=== PATIENT | female | born 1960 | race Caucasian/White ===

== ENCOUNTER 2022-07-01 23:11 | Emergency (ER) | payer SELFPAY ==
[2022-07-01 23:11] VITALS: BP 116/98; PULSE 80; RESP 18; TEMP 37; O2SAT 96; BMI 28.4
--- NOTE | 2022-07-01 23:39 | EKG12_ITS ---
Test Reason : SYNCOPE Blood Pressure : / mmHG Vent. Rate : 078 BPM Atrial Rate : 078 BPM P-R Int : 170 ms QRS Dur : 072 ms QT Int : 410 ms P-R-T Axes : 073 047 053 degrees QTc Int : 467 ms Normal sinus rhythm Low voltage QRS (Limb Leads) Confirmed by VIVIENNE COPE, SHANKAR ([id number]), web content editor TABATHA DRAKE ([id number]) on 07/03/2022 9:24:36 AM Referred By: TL Confirmed By:SHANKAR PALAFOX MD
--- NOTE | 2022-07-01 23:50 | RAD_ITS ---
EXAM: XR CHEST, 2 VIEWS CLINICAL INDICATION: chest injury TECHNIQUE: Frontal and lateral views of the chest. This report was created using [employer] report generation technology. COMPARISON: None. FINDINGS: LUNGS AND PLEURAL SPACES: Unremarkable. No consolidation or edema. No pneumothorax. No effusion. HEART: Unremarkable. Cardiac silhouette not enlarged. MEDIASTINUM: Central airways and mediastinal contour are unremarkable. BONES/JOINTS: Unremarkable. SOFT TISSUES: Unremarkable. RAD/Chest PA and Lateral IMPRESSION: No radiographic evidence of acute cardiopulmonary disease. Electronically Signed: Jose Herring MD at 0:18 EDT ,
--- NOTE | 2022-07-01 23:50 | EX.ED.DYSGE1 ---
HPI History of Present Illness Chief Complaint: Syncope Informant: patient Narrative Narrative: Patient presents here with sister after a fall. She states she is in bed had pain and numbness distal from lower leg. She tried her leg through the hallway into the kitchen she states she then fell down and felt like her whole body passed out. She states was awake throughout. No head injuries. No headache or neck pain. States that chest pain left side after falling. Currently denies any chest or leg pain. She is on the phone with her sister around 1015, she states there is a lot going on her mind she was trying to talk. Her sister states she was stuttering. She states there was no troubles trying to get her words out except that she had a lot going on in her mind. She did not express any expressive aphasia. Denies any similar symptoms in the past. She takes [id number] multivitamins and supplements. Denies hypertension diabetes or hyperlipidemia. Prior similar symptoms: No PFSH PFSH Medical History Anxiety Depression GERD (gastroesophageal reflux disease) Hypothyroidism Home Medications albuterol sulfate 90 mcg/actuation aerosol inhaler (Ventolin HFA) 1 - 2 puff inhalation Q4H PRN PRN Wheezing ##1 02/14/17 [Rx Last Taken Unknown] potassium 07/01/22 [History Last Taken Unknown] vitamin A 2,400 mcg capsule 2,400 mcg PO DAILY 07/01/22 [History Last Taken Unknown] zinc 10 mg tablet 10 mg PO DAILY 07/01/22 [History Last Taken Unknown] Allergy/AdvReac Type Severity Reaction Status Date / Time cimetidine [From Tagamet] Allergy Rash Verified 02/14/17 18:44 cimetidine HCl [From Tagamet] Allergy Rash Verified 02/14/17 18:44 Sulfa (Sulfonamide Allergy Rash Verified 02/14/17 18:44 Antibiotics) Surgical History H/O partial thyroidectomy Social History Smoking Status: Never smoker ROS ROS ED Constitutional Constitutional ED: Denies chills, fever(s) or sweats Eyes Eyes: Denies change in vision ENT ENT ED: Denies dysphagia or sore throat Cardiovascular Cardiovascular: Reports chest pain; Denies leg edema, palpitations or racing heartbeat Respiratory/Chest Respiratory/Chest: Denies cough, dyspnea or dyspnea on exertion Gastrointestinal Gastrointestinal: Denies abdominal pain, diarrhea, nausea or vomiting Genitourinary Genitourinary ED: Denies dysuria, hematuria or urinary frequency Musculoskeletal Musculoskeletal: Reports extremity pain; Denies back pain or neck pain Integumentary Denies rash or wounds Neurologic Neurologic: Denies headache(s), paresthesias or weakness EXAM Physical Exam Const Vital Signs: 07/01/22 23:11 07/01/22 23:23 07/02/22 01:14 Temperature 98.6 F Temperature Source Temporal Pulse Rate 80 98 Respiratory Rate 18 13 Respiratory Effort Normal Non-Labored Respiratory Pattern Normal Blood Pressure 116/98 H 127/99 H Blood Pressure Mean 104 Pulse Ox 96 97 Oxygen Delivery Method Room Air Positive well nourished and well developed General Appearance ED: well developed and NAD HEENT Reports moist mucous membranes normocephalic and atraumatic Eyes PERRL, EOMs intact bilaterally and conjunctivae normal General Eye ED: Yes normal appearance of both eyes Neck no lymphadenopathy and supple General: Negative for tenderness Chest Wall Chest Narrative: Left chest wall tenderness reproduced with palpation there is no ecchymosis or crepitus. Chest: Negative for tenderness Resp normal respiratory effort and normal air movement Resp Narrative: Symmetric breath sounds. Effort and Inspection: symmetric chest movement; Negative for respiratory distress Cardio regular rate, regular rhythm and no murmurs Peripheral Pulses: pulses 2+ throughout GI normal to inspection, nondistended, normoactive bowel sounds and non-tender Palpation: Negative for guarding or rebound tenderness present Back/Spine no CVA tenderness and no thoracic nor lumbar tenderness Extremity normal to inspection Extremity Narrative: No leg pain, no swelling. Pulses are intact distally. General Extremety ED: Negative for edema or tenderness General Extremity: Negative for edema Neuro oriented x3, CN's II-XII intact bilaterally and no sensory deficits noted Neuro Narrative: NIH equals 0 Sensorium / Orientation: awake and alert Skin no rashes or lesions noted and no wounds NIHSS NIHSS Initial: 1a Level of Consciousness: 0 1b LOC Questions (Score 2 if aphasic/stupor): 0 1c LOC Commands (Only score 1st attempt): 0 2 Best Gaze (If aphasic, use reflexive mvmts.): 0 3 Visual: 0 4 Facial Palsy: 0 5 Motor Arm Right (UN = amputation/fusion): 0 5 Motor Arm Left: 0 6 Motor Leg Right: 0 6 Motor Leg Left: 0 7 Limb ataxia (Only + if out of proportion): 0 8 Sensory (Aphasia/stupor=0 or 1, coma=2): 0 9 Best Language: 0 10 Dysarthria (mute, coma=2, intubated=UN): 0 11 Extinction and Inattention (only scored if +): 0 Total Score: 0 MDM MDM MDM Narrative Medical decision making narrative: PatientPatient vague symptoms. Anterior distal leg pain with paresthesias. She had no deficits on exam NIH of 0. There is no expressive aphasia or history for concerns for stroke. Chest pain after a fall. Two-view chest x-ray reviewed by myself read by radiology shows no acute process labs with troponin negative. Discussed chest wall injury discussed obtaining 2-hour troponin if she is concerned for cardiac, she declines. Chest wall contusion discussed. She was able to ambulate in the ED with no return of symptoms. She will follow-up as an outpatient. Return precautions. All questions were answered. Lab Data Attestation: I reviewed the patient's lab results. Labs: Laboratory Results - last 24 hr 07/01/22 07/01/22 23:15 23:15 WBC 12.7 H RBC 4.99 Hgb 15.9 H Hct 45.6 MCV 91.4 MCH 31.9 MCHC 34.9 RDW Std Deviation 46.1 H RDW Coeff of Jaja 13.7 Plt Count 247 MPV 9.4 Immature Gran % (Auto) 0.400 Neut % (Auto) 49.7 Lymph % (Auto) 38.9 [place] % (Auto) 7.7 Eos % (Auto) 2.6 Baso % (Auto) 0.7 Absolute Neuts (auto) 6.3 Absolute Lymphs (auto) 4.94 H Nucleated RBC % 0 Sodium 140 Potassium 3.8 Chloride 105 Carbon Dioxide 28.0 Anion Gap 7 BUN 12 Creatinine 0.99 Estim Creat Clear Calc 57.91 Est GFR (MDRD) Af Amer 72 Est GFR (MDRD) Non-Af 60 BUN/Creatinine Ratio 12.1 Glucose 138 H Calcium 9.5 Troponin I High Sens 5 Radiography Diagnostic Testing: Clinical Impression(s) from Imaging Studies Chest X-Ray 07/01/22 23:50 IMPRESSION: No radiographic evidence of acute cardiopulmonary disease. Electronically Signed: Jose Herring MD at 0:18 EDT , EKG Initial EKG: Attestation: I personally reviewed and interpreted this EKG as follows: Comments: Sinus rate of 78, no ST or T wave changes. QTc 467. Discharge Plan Triage Chief Complaint: Syncope ED Provider: Alin Presley Dx/Rx/DC Orders Clinical Impression: Fall, Chest wall injury, Paresthesia Instructions: ED Chest Wall Contusion, ED Paraesthesias Prescriptions: No Action albuterol sulfate [Ventolin HFA] 1 INHALER inhaler 1 - 2 puff inhalation Q4H PRN PRN (Reason: Wheezing) Qty: 1 0RF vitamin A 2,400 mcg Capsule 2,400 mcg PO DAILY zinc 10 mg Tablet 10 mg PO DAILY potassium Primary Care Provider: Chance Saleem Referrals: Chance Saleem MD [Primary Care Provider] - 3-5 Days Activity Restrictions/Additional Instructions: EKG cardiac work-up, chest x-ray negative. Follow-up with your doctor for reevaluation. Return if any worsening symptoms. Disposition Disposition: Home, Self Care Discharge Date/Time: 07/02/22 01:15
[2022-07-01 23:57] LABS: Absolute Lymphocyte Count 4.94 X10^3/uL (0.83-4.51); Absolute Neutrophil Count 6.3 X10^3/uL (2.0-7.7); Basophil# 0.09 X10^3/uL; Basophil% 0.7 % (0-1); Eosinophil# 0.33 X10^3/uL; Eosinophils% 2.6 % (0-5); Hematocrit 45.6 % (37-47); Hemoglobin 15.9 g/dL (12.0-15.0); Lymphocyte # 4.94 X10^3/ul (0.83-4.51); Lymphocyte % 38.9 % (19-41); Mean Corp Hgb Conc 34.9 g/dL (32-36); Mean Corpuscular Hgb 31.9 pg (27.0-32.0); Mean Corpuscular Volume 91.4 fL (81-99); Mean Platelet Vol. 9.4 fl (6.2-12.0); Monocyte# 0.98 X10^3/uL; Monocyte% 7.7 % (0-10); NRBC Flagged by Analyzer 0 % (0-5); Neutrophil # 6.31 X10^3/uL (2.7-7.7); Neutrophil % 49.7 % (47-70); Platelet Count 247 K/mm3 (150-450); RBC Distribution Width CV 13.7 % (11.6-14.6); RBC Distribution Width SD 46.1 fl (35.1-43.9); Red Blood Count 4.99 M/mm3 (4.2-5.4); White Blood Count 12.7 K/mm3 (4.4-11.0)
[2022-07-02 00:13] LABS: Anion Gap 7 (5-15); BUN 12 mg/dL (7-18); BUN/Creat Ratio 12.1 RATIO (10-20); Calcium,Total 9.5 mg/dL (8.5-10.1); Chloride 105 mmol/L (98-107); Creatinine, Serum 0.99 mg/dL (0.55-1.02); EST Glomerular Filtration Rate 60 mL/min (>60); Est Glom Filt Rate - Afr Amer 72 mL/min (>60); Estimated Creatinine Clearance 57.91 ml/min; Glucose 138 mg/dL (74-106); Potassium 3.8 mmol/L (3.5-5.1); Sodium Level 140 mmol/L (136-145); Troponin-I HS (w/2H Reflex) 5 pg/mL (3.0-54.0)
[2022-07-02 01:14] VITALS: BP 127/99; PULSE 98; RESP 13; O2SAT 97
[2022-07-02 01:45] LABS: Reflex Troponin-HS? (from REC) Y
== END 2022-07-02 01:15 | disposition home or self-care (01) ==
PROVIDERS: Emergency Provider Emergency Medicine; PCP Family Medicine; Visit Provider Emergency Medicine
DX: S20.212A Contusion of left front wall of thorax, initial encounter (principal); W18.39XA Other fall on same level, initial encounter; R20.2 Paresthesia of skin
CPT/HCPCS: 71046; 80048; 84484; 85025; 93005; 99284; A4216

== ENCOUNTER 2024-01-11 09:28 | Day surgery (SDC) | payer MEDICARE, SELFPAY ==
--- NOTE | 2024-01-11 08:19 | HP.PCM_ITS ---
History and Physical Date of Admission: 01/11/24 HISTORY OF PRESENT ILLNESS 63 year old woman presents for evaluation for TBSE. She has concerns regarding lesions on her right lower medial back, left medial chest wall near clavicle, left lateral inferior neck, right posterior shoulder, and left anterior shoulder that have enlarged in size over the last few years and have become more raised in configuration. She denies fever. She denies trauma, She denies infection, She denies drainage. The right lower medial back lesion also has irregular borders. She also some tannish spots on her left lateral cheek by lateral canthal area and right lateral cheek by lateral canthal area. She has no previous history of skin cancer. She states there is no family history of skin cancer. She presents today for further evaluation and treatment. PAST MEDICAL HISTORY Anxiety Benign lesion of orbit Benign skin lesion Bladder infection Bone fracture Depression GERD (gastroesophageal reflux disease) High cholesterol Hypothyroidism Migraines Neoplasm of skin of left cheek Neoplasm of skin of lower back Neoplasm of skin of right cheek Vitamin deficiency PAST SURGICAL HISTORY H/O partial thyroidectomy ALLERGIES cimetidine [From Tagamet] cimetidine HCl [From Tagamet] Sulfa (Sulfonamide Antibiotics) MEDICATIONS albuterol sulfate/actuation aerosol inhaler (Ventolin HFA) potassium vitamin A zinc FAMILY HISTORY Other Heart disease High cholesterol Hypertension SOCIAL HISTORY Smoking Status: Never smoker REVIEW OF SYSTEMS General - Denies fever, fatigue, and weight loss. Eyes - Denies cataracts and glaucoma. ENT - Denies nasal congestion and sore throat. Endocrine - Denies excessive thirst and urination. Skin - Denies skin cancer. Has enlarging lesions on her right lower medial back, left medial chest wall near clavicle, left lateral inferior neck, right posterior shoulder, and left anterior shoulder. Has tannish lesions left and right lateral cheeks by lateral canthal areas. Musculoskeletal - Denies joint pain, joint stiffness, weakness of muscles and joints, back pain, and arthritis. Neuro - Has headaches. Cardiovascular - Denies chest pain, fatigue, and shortness of breath with exertion. Psych - Has anxiety and depression. Respiratory - Denies chronic cough and shortness of breath. Gastrointestinal - Denies nausea, vomiting, diarrhea, and constipation. Hematologic - Denies abnormal bruising and bleeding. Genitourinary - Denies hematuria and urinary frequency. PHYSICAL EXAMINATION General - Alert and Oriented. HEENT - PERRL. EOMI. Throat is clear. On the left lateral cheek by lateral canthal area is a tannish lesion that measures 1.5 cm. It is flat and uniform in coloration. Has slightly irregular borders. No ulceration. Lesion is nontender. Lesion looks actinic in nature. On the right lateral cheek by lateral canthal area is a tannish lesion that measures 1.3 cm. It is flat and uniform in coloration. Has slightly irregular borders. No ulceration. Lesion is nontender. Lesion looks actinic in nature. No other suspicious lesions noted. Neck - Supple and nontender. No cervical adenopathy. On the left lateral inferior neck is a lesion that measures 0.4 cm. Some firmness noted. Tannish to light brown in coloration. Slightly raised in configuration. Has regular borders. No ulceration. Lesion is nontender. Clinically looks benign at this time. No other suspicious lesions noted. Chest wall - On the left medial chest wall near the clavicle is a lesion that measures 0.5 cm. Some firmness noted. Tannish to light brown in coloration. Slightly raised in configuration. Has regular borders. No ulceration. Lesion is nontender. Clinically looks benign at this time. No other suspicious lesions noted. Lungs - Clear to auscultation. Heart - Regular rate and rhythm. Abdomen - Soft and nondistended. Extremities - FROM. No axillary adenopathy. Radial pulses are palpable. On the left anterior shoulder is a lesion that measures 0.9 cm. Lesion is soft. Tannish to light brown in coloration. Slightly raised in configuration. Has regular borders. No ulceration. Lesion is nontender. Clinically looks benign at this time. On the right posterior shoulder is a lesion that measures 0.6 cm. Lesion is soft. Tannish to light brown in coloration. Slightly raised in configuration. Has regular borders. No ulceration. Lesion is nontender. Clinically looks benign at this time. No other suspicious lesions noted. Back - On the right lower medial back is a lesion that measures 1 cm. Mild firmness noted. Tannish to light brown in coloration. Raised in configuration. Has irregular borders. No ulceration. Lesion is tender from rubbing on her clothes. No other suspicious lesions noted. Neuro - CN II-XII grossly intact. Psych - Normal mood and affect. ASSESSMENT 1. ! cm lesion right lower medial back. 2. 1.5 cm actinic lesion left lateral cheek by lateral canthal area. 3. 1.3 cm actinic lesion right lateral cheek by lateral canthal area. 4. 0.9 cm lesion left anterior shoulder. 5. 0.6 cm lesion right posterior shoulder. 6. 0.5 cm lesion left medial chest wall near the clavicle. 7. 0.4 cm lesion left lateral inferior neck. PLAN For the lesion right lower medial back, recommend excision and send it to Pathology for analysis to rule out carcinoma. If carcinoma is present then further excision will be done with skin flap or skin graft reconstruction. The actinic lesions on her right and left lateral cheek by lateral canthal area can be treated with Aldara. This cream is applied daily at night 5 days per week. Weekends off. Do this for 6 weeks. The return for re-evaluation in 2 months. The Aldara cream can cause redness and burning and scabbing. It is temporary. At that two month visit, if there is improvement but still some residual actinic lesion, a second cycle of Aldara can be done. If persistent or if there is recurrence, would consider surgical excision at that time and send it to Pathology for analysis to rule out carcinoma. The other lesions (left anterior shoulder, right posterior shoulder, left medial chest wall near the clavicle, and left lateral inferior neck) look clinically benign at this time. Patient is aware that if changes occur, then would re- evaluate for excision at that time. If excised, will send the tissue to Pathology for analysis to rule out carcinoma. The surgery for excision of lesion right lower medial back, it can be done as an outpatient under local anesthesia with sedation or general anesthesia. Patient will be in the prone position. Patient was informed of the risks and complications of the procedure including alternatives to surgery. These were discussed with the patient personally. Patient voices understanding and wishes to proceed. Some of the risks and complications were included in a form from the [employer]. Potential risks and complications included but not inclusive of bleeding, infection, seroma, hematoma, bruising, swelling, loss of sensation to skin, pa rtial or complete loss of skin flap and/or skin graft, wound breakdown, need for wound care, poor scarring, poor aesthetic outcome, intra operative cardiac or neurologic events, DVT, PE, and reaction to anesthesia. Will send Aldara to her Pharmacy. From the day she starts it, she would return in 2 months for a re-evaluation. Assessment & Plan Assessment/Plan (1) Neoplasm of skin of lower back: (2) Neoplasm of skin of left cheek: (3) Neoplasm of skin of right cheek: (4) Benign skin lesion:
[2024-01-11 10:03] VITALS: BP 129/88; PULSE 73; RESP 16; TEMP 36.9; O2SAT 100; BMI 27.5
[2024-01-11] MEDS: Lactated Ringers 1,000 ML 15 ML IV (10:12)
[2024-01-11] MEDS: Cefazolin 2 GM in 0.9% Normal Saline (100mL Bag) 100 ML IV (10:33)
--- NOTE | 2024-01-11 10:55 | LES_PTH ---
PATIENT: RODO GORDON LOC: [facility] [place] U#:[id number] AGE/SX: 63/F ROOM: RE01/11/[address]: Dr. Melvin Nolasco MD : 1960 BED: DIS: 01/11/2024 SPEC #: [id number] RECD: 01/11/24 13:31 STATUS: BRITTANEY BHAVIN #: [id number] LUNA: 01/11/24 10:[address]: Melvin Nolasco DEPT: SURGICAL PATHOLOGY RECD BY: Abi Jovel ENTERED: 01/14/24 07:16 SP TYPE: Lesion OTHR DR: Dr. Indra Esposito, DO Tissues: Skin of back, NOS Procedures: Surgery Specimen Level IV HEADER OPERATION: Excision lesion right lower medial back PRE-OP DIAGNOSIS: Neoplasm of skin lower back, benign skin lesion TISSUE SUBMITTED: 1cm lesion right lower medial back MICROSCOPIC DIAGNOSIS Skin lesion right lower medial back, excision: Polypoid intradermal nevus. / 01/15/24 MICROSCOPIC DESCRIPTION Slides are reviewed. GROSS DESCRIPTION Received in fixative is one container labeled with the patient's name and designated Lesion of right lower mid back. The specimen consists of an ellipse of light craig excised skin measuring 1.5 x 0.5 x 0.5cm and excised depth of 0.6cm, the cutaneous surface. This contains a lesion measuring 1.0cm. A suture is looped around the cutaneous lesion. The specimen is inked, serially sectioned and totally submitted in one cassette. / 01/14/2024 TC:5 CPT:48970
[2024-01-11] MEDS: Lidocaine 1% /Epi 1:100 (20ml) 20 ML Vial (10:59)
[2024-01-11] MEDS: Mupirocin Ointment 22gm Tube 1 APPLIC (11:09)
--- NOTE | 2024-01-11 11:17 | PCM.OPRPT ---
Problems Associated Problem List Diagnoses (1) Neoplasm of skin of lower back: (2) Neoplasm of skin of left cheek: (3) Neoplasm of skin of right cheek: Report of Operation Date of Procedure: 01/11/24 Pre-Operative Diagnosis: 1. 1 cm lesion right lower medial back. 2. 1.5 cm actinic lesion left lateral cheek by lateral canthal area. 3. 1.3 cm actinic lesion right lateral cheek by lateral canthal area. Post-Operative Diagnosis: Same. Surgery/Procedure Performed:: Excision 1 cm lesion right lower medial back with 2 cm layered intermediate closure. Description of Surgical Findings:: 63 year old woman presents for evaluation for TBSE. She has concerns regarding lesions on her right lower medial back, left medial chest wall near clavicle, left lateral inferior neck, right posterior shoulder, and left anterior shoulder that have enlarged in size over the last few years and have become more raised in configuration. She denies fever. She denies trauma, She denies infection, She denies drainage. The right lower medial back lesion also has irregular borders. She also some tannish spots on her left lateral cheek by lateral canthal area and right lateral cheek by lateral canthal area. She has no previous history of skin cancer. She states there is no family history of skin cancer. She presents today for further evaluation and treatment. Surgeon: Melvin Nolasco MD facility mechanic: None Type of Anesthesia: Local MAC Anesthesiologist: Chance Concepcion MD and Margarita Dunn CRNA Specimen's removed: Lesion right lower medial back to Pathology. Drains: None. Estimated Blood Loss (mL): 5. Description of Procedure: In the preop area, the lesion was marked. Patient was taken to OR in supine position and was given IV sedation. She was then placed in the prone position. The lower back was prepped and draped in the usual fashion. SCD's were placed for DVT prophylaxis. Perioperative antibiotics were given intravenously. The right lower medial back lesion was infiltrated with xylocaine and epinephrine. After waiting 5 minutes for the anesthetic to take effect, the right lower medial back lesion was excised in a horizontal elliptical fashion. The excision went into the subcutaneous tissue. There were no hard masses palpable in the remaining subcutaneous tissue. A suture was marked at the 12 oclock position for pathology orientation. It was then sent to Pathology for analysis to rule out carcinoma. The wound was irrigated with saline. Hemostat was obtained with electrocautery. I was able to close the wound primarily in a multi layered fashion. The deep dermis and subcutaneous tissue was approximated with 3.0 Monocryl. The skin was closed with 4-0 Prolene simple interrupted sutures. Antibiotic ointment was applied to the suture line and to be continued daily until the sutures are removed in 2 weeks. Patient tolerated the procedure well and was sent to PACU in satisfactory condition. Patient will be sent home on antibiotics and pain medication. Patient will followup in a week for a wound check and for discussion of the pathology report. The sutures will be removed in 2 weeks, Grafts/Implants Used: None. Procedure Start Time: 10:59 Procedure Stop Time: 11:14 Complications None. Admit VTE Documentation VTE Present on Admission: No VTE Mechan Device Prophylaxis: SCD's VTE Pharm Prophylaxis ordered?: No
--- NOTE | 2024-01-11 11:18 | DCINST_ITS ---
Discharge Instructions Diet Discharge Diet: No restrictions Activity Discharge Activity: May Drive (after first office visit.), May Shower (in 2 days.) and - (no heavy lifting.) May shower in (days): 2 May resume sexual activity in: No Restrictions and 10-14 days Weight Bearing Status: Weight bearing as tolerated Lifting Restrictions: 20 lbs. Dressing / Incision Call your doctor if your incision/area has: Continuous Slow Oozing, Sudden Increased Bleeding, Increased Pain/ Swelling, Increased Redness, Foul Smelling Discharge and Swelling at the incision site Call your doctor if you observe: Fever of 101 or Higher, Coldness, Increased Pain, Shortness of breath, Chest pain, Calf discomfort and Uncontrolled pain Change Dressing in: 2 days (may shower in two days. Afterward apply antibiotic ointment followed by gauze dressing.) Cleanse incision/area with: Soap & Water (may get incision wet in the shower in two days.) Follow Up Care Please Follow Up With: Melvin Nolasco MD When: one week. call [phone] for appt. Test Results: Test results from this visit will be discussed in further detail at your follow- up appointment, if applicable. Discharge Plan Admission Primary Reason for Your Visit: excision lesion right lower back Attending Provider: Melvin Nolasco Primary Care Provider: Indra Esposito Discharge Orders/Prescriptions Prescriptions: New cefadroxil 500 mg capsule 500 mg PO BID Qty: 10 0RF L.acidoph,saliva-B.bif-S.therm [Acidophilus Probiotic Blend] 175 mg capsule 1 cap PO DAILY Qty: 20 0RF oxycodone-acetaminophen [Percocet] 5-325 mg tablet 1 tab PO TID 4 Days Qty: 12 0RF Rx Instructions: 12 tabs (twelve) Continued acai crump extract 500 mg capsule 500 mg PO DAILY cholecalciferol (vitamin D3) 50 mcg (2,000 unit) capsule 50 mcg PO DAILY blackseed oil 1 cap PO DAILY vit C-vit U7-B-lesw-elderberry 65 mg-3.15 mcg- 3.35 mg-1 mg tablet,chewable 1 tab PO DAILY rosuvastatin 10 mg tablet 10 mg PO QHS magnesium citrate 100 mg capsule 100 mg PO DAILY imiquimod 5 % cream in packet 4 mm topical MOTUWETHFR Rx Instructions: apply once daily Sunday through Sunday before bedtime, weekends off, for 6 weeks Referrals / Follow Up: Indra Esposito DO [Primary Care Provider] - Melvin Nolasco MD [Med Staff - Active Staff] - In 1 Week Disposition Disposition (needs filled in before D/C Order can be placed): Home, Self Care
[2024-01-11 11:22] VITALS: BP 104/80; BP 129/88; PULSE 70; RESP 18; TEMP 36.8; O2SAT 96
[2024-01-11 11:25] VITALS: BP 106/75; BP 129/88; PULSE 70; RESP 18; O2SAT 97
[2024-01-11 11:30] VITALS: BP 104/69; BP 129/88; PULSE 69; RESP 18; O2SAT 98
[2024-01-11 11:40] VITALS: BP 110/78; BP 129/88; PULSE 65; RESP 18; TEMP 36.9; O2SAT 100
[2024-01-11 12:23] VITALS: BP 129/88
== END 2024-01-11 12:46 | disposition home or self-care (01) ==
LOC: SDC 09:32 → AC 09:35
PROVIDERS: PCP Student in an Organized Health Care Education/Training Program; Referring Provider Surgery; Visit Provider Surgery
PROC: (CPT 11402; principal; 2024-01-11 10:45)
DX: D49.2 Neoplasm of unspecified behavior of bone, soft tissue, and skin (principal); E78.00 Pure hypercholesterolemia, unspecified; E89.0 Postprocedural hypothyroidism; Z78.0 Asymptomatic menopausal state
CPT/HCPCS: 11402; 12031; 00300; 88305; J7120; J2405

== ENCOUNTER → 2024-02-18 | Outpatient (CLI) | payer MEDICARE, SELFPAY | END | disposition home or self-care (01) | LOC: LABSPEC 15:53 | PROVIDERS: PCP Student in an Organized Health Care Education/Training Program; Visit Provider Surgery | DX: T81.31XA Disruption of external operation (surgical) wound, not elsewhere classified, initial encounter (principal); T14.8XXA Other injury of unspecified body region, initial encounter; Z98.890 Other specified postprocedural states; Z87.2 Personal history of diseases of the skin and subcutaneous tissue; X58.XXXA Exposure to other specified factors, initial encounter | CPT/HCPCS: 87070; 87075; 87077; 87186; 87205 ==